=== PATIENT | male | born 1945 | race Caucasian/White ===

== ENCOUNTER 2023-05-19 21:33 | Emergency (ER) | payer OTHER ==
[~2023-05-19] VITALS: Ht 172.7 cm; Wt 85.7 kg
[2023-05-19 21:45] VITALS: BP 128/82; PULSE 56; RESP 20; TEMP 98; O2SAT 98
--- NOTE | 2023-05-19 21:56 | NUR ---
PT WENT TO TO GET EKG AT BED 10
--- NOTE | 2023-05-19 21:58 | NUR ---
PT AMBULATED TO ER BED 3
--- NOTE | 2023-05-19 22:10 | NUR ---
78yo m cc of palpitation associted of sob at 1500hrs and numbness on left arm. denies trauma, chest pain, n/v/d/fever. pmhx: highcholesterol, htn pt resting on bed. a/ox4. not in distress. chest rise and fall symmetrical. on monitor. oriented to call light and within reach. bed locked to lowest position. siderails x2 for safety. placed on moderate high back rest
[2023-05-19 22:18] LABS: BASOPHILS # (AUTO) 0.1 K/uL (0.00-0.22); BASOPHILS % (AUTO) 1.2 % (0.0-2.0); EOSINOPHILS # (AUTO) 0.7 K/uL (0-0.4); EOSINOPHILS % (AUTO) 8.2 % (0.0-4.0); HEMATOCRIT 39.5 % (36-52); HEMOGLOBIN 13.4 g/dL (12.0-18.0); LYMPHOCYTES % (AUTO) 37.7 % (20.5-51.1); MEAN CORPUSCULAR HEMOGLOBIN 32 pg (27-31); MEAN CORPUSCULAR HGB CONC 34 g/dL (33-37); MEAN CORPUSCULAR VOLUME 92.6 fL (80-94); MONOCYTES # (AUTO) 0.8 K/uL (0.8-1.0); MONOCYTES % (AUTO) 10.4 % (1.7-9.3); NEUTROPHILS # (AUTO) 3.4 K/uL (1.8-7.7); NEUTROPHILS % (AUTO) 42.5 % (42.2-75.2); PLATELET COUNT (AUTO) 230 K/uL (140-450); RED BLOOD CELL COUNT(AUTO) 4.26 MIL/uL (4.20-6.10); RED CELL DISTRIBUTION WIDTH 13.6 % (11.6-13.7); WHITE BLOOD COUNT (AUTO) 7.9 K/uL (4.8-10.8)
--- NOTE | 2023-05-19 22:20 | NUR ---
xray at bedside
[2023-05-19 22:47] LABS: ALBUMIN 3.3 g/dL (3.4-5.0); ANION GAP 12.2 (8-16); ASPARTATE AMINOTRANSFERASE 22 U/L (15-37); CARBON DIOXIDE 23.6 mmol/L (21-32); CHLORIDE 108 mmol/L (98-107); CREATININE 0.9 mg/dL (0.6-1.3); GLUCOSE 106 mg/dL (74-106); PHOSPHORUS 3.1 mg/dL (2.5-4.9); POTASSIUM 3.8 mmol/L (3.5-5.1); SODIUM SERUM 140 mmol/L (136-145); TOTAL BILIRUBIN 0.4 mg/dL (0.0-1.0); UREA NITROGEN, BLOOD 21 mg/dL (7-18)
--- NOTE | 2023-05-20 00:43 | NUR ---
CLINICALS FAXED TO [phone]
[2023-05-20] MEDS ORDERED: LOSA100T2 PO (01:27)
[2023-05-20] MEDS ORDERED: ASPI81CT20 PO (01:27)
[2023-05-20] MEDS ORDERED: FLONAS NS (01:27)
[2023-05-20] MEDS ORDERED: ATOR20TA PO (01:27)
[2023-05-20] MEDS ORDERED: METO-747 PO (01:27)
--- NOTE | 2023-05-20 01:46 | NUR ---
pt resting on bed. a/ox4. not in distress. chest rise and fall symmetrical. on monitor.call light within reach. bed locked to lowest position. siderails x2 for safety. placed on moderate high back rest
--- NOTE | 2023-05-20 04:06 | NUR ---
pt resting on bed with eyes closed. not in distress. chest rise and fall symmetrical. on monitor.call light within reach. bed locked to lowest position. siderails x2 for safety. placed on moderate high back rest
--- NOTE | 2023-05-20 04:14 | NUR ---
[facility] BEDSIDE FOR TRANSPORT
--- NOTE | 2023-05-20 04:20 | NUR ---
Patient to be transferred to [facility]. Is being transferred due to insurance request. Receiving facility has accepting physician and available space. ER physician has signed transfer form. Patient or responsible alliance party has agreed to transfer and signed form. Patient belongings inventoried and will be sent with patient. Copy of nursing notes, lab reports, EKG, Physicians Orders and X-rays to be sent with patient. Report called to Nikia GUADARRAMA at receiving facility. [facility] ambulance service has been called for transfer. ETA is [id number].
[2023-05-20 04:23] VITALS: BP 132/74; PULSE 61; RESP 20; TEMP 98; O2SAT 95
--- NOTE | 2023-05-20 04:23 | NUR ---
PT DEPARTED FROM FACILITY WITH [facility]
== END 2023-05-20 04:23 | disposition short-term general hospital (02) ==
LOC: MED 21:33
DX: R00.1 Bradycardia, unspecified (principal); R00.2 Palpitations; R06.02 Shortness of breath; I10 Essential (primary) hypertension; Z79.899 Other long term (current) drug therapy
CPT/HCPCS: 36415; 71045; 80053; 83735; 84100; 84484; 85025; 93005; 99291; Q0092